=== PATIENT | female | born 1940 | race Caucasian/White ===

== ENCOUNTER 2017-10-22 20:51 | Inpatient (IN) | payer MEDICARE ==
[2017-10-22 21:22] LABS: ADD MAN DIFF? NO
[2017-10-22 21:28] LABS: BILIRUBIN,URINE NEGATIVE (NEG); CLARITY,URINE CLOUDY; COLOR,URINE YELLOW; GLUCOSE,URINE NEGATIVE (NEG); NITRITE,URINE NEGATIVE (NEG); PROTEIN,URINE NEGATIVE (NEG-TRACE); UROBILINOGEN,URINE 0.2 mg/dL (0.2 mg/dL)
[2017-10-22 21:29] LABS: BASO # 0.1 x10^3/uL (0.0-0.2); BASO % 1 % (0-3); EOS % 0 % (0-3); HEMOGLOBIN 15.6 g/dL (12.0-15.5); LYMPH % 15 % (24-48); MEAN CORPUSCULAR HEMOGLOBIN 32 pg (25-35); MEAN CORPUSCULAR HGB CONC 34 g/dL (31-37); MEAN CORPUSCULAR VOLUME 93 fL (79-100); MONO % 8 % (0-9); NEUT % 76 % (31-73); PLATELET COUNT 243 x10^3/uL (140-400); RED BLOOD COUNT 4.97 x10^6/uL (3.50-5.40); RED CELL DISTRIBUTION WIDTH 13.8 % (11.5-14.5); WHITE BLOOD COUNT 13.1 x10^3/uL (4.0-11.0)
[2017-10-22 21:33] LABS: BACTERIA,URINE MANY /HPF (0-FEW); RBC,URINE OCC /HPF (0-2); SQUAMOUS EPITHELIAL CELL,UR MANY /LPF
[2017-10-22 21:37] LABS: ANION GAP 14 (6-14); BLOOD UREA NITROGEN 41 mg/dL (7-20); BUN/CREATININE RATIO 29 (6-20); CALCIUM 9.2 mg/dL (8.5-10.1); CARBON DIOXIDE 21 mmol/L (21-32); CHLORIDE 97 mmol/L (98-107); CREATININE 1.4 mg/dL (0.6-1.0); GFR 36.6; GLUCOSE 148 mg/dL (70-99); SODIUM 132 mmol/L (136-145)
[2017-10-22] MEDS: IV NORMAL SALINE 1000ML BAG 1,000 ML IV (21:37)
[2017-10-22 21:42] LABS: ALBUMIN 3.7 g/dL (3.4-5.0); ALK PHOS 87 U/L (46-116); ALT (SGPT) 25 U/L (14-59); AST (SGOT) 38 U/L (15-37); TOTAL BILIRUBIN 0.5 mg/dL (0.2-1.0); TOTAL PROTEIN 7.3 g/dL (6.4-8.2)
[2017-10-22 21:45] LABS: TROPONINI 0.023 ng/mL (0.000-0.055)
[2017-10-22 21:50] LABS: CKMB MASS 3.3 ng/mL (0.0-3.6); CREATINE KINASE 164 U/L (26-192)
[2017-10-22] MEDS: ASPIRIN ENTERIC COATED 325 MG TABLET.DR. PO (22:58)
[2017-10-22] MEDS ORDERED: ONDANSETRON PF 4 MG/2 ML VIAL. IV (23:15)
[2017-10-23 03:34] LABS: TROPONINI 0.053 ng/mL (0.000-0.055)
[2017-10-23] MEDS ORDERED: ACETAMINOPHEN 325 MG TABLET. PO (05:30)
[2017-10-23 05:43] LABS: TROPONINI 0.055 ng/mL (0.000-0.055)
[2017-10-23] MEDS ORDERED: IV NORMAL SALINE 1000ML BAG 1,000 ML IV (06:00)
[2017-10-23 09:10] LABS: ANION GAP 9 (6-14); BLOOD UREA NITROGEN 34 mg/dL (7-20); CALCIUM 8.4 mg/dL (8.5-10.1); CARBON DIOXIDE 24 mmol/L (21-32); CHLORIDE 101 mmol/L (98-107); CHOLESTEROL 218 mg/dL (0-200); CREATININE 1.2 mg/dL (0.6-1.0); GFR 43.7; GLUCOSE 88 mg/dL (70-99); HDLC 82 mg/dL (40-60); LDLC 122 mg/dL (0-100); MAGNESIUM 1.8 mg/dL (1.8-2.4); NON-HDL CHOLESTEROL 136 mg/dL (0-129); POTASSIUM 4.3 mmol/L (3.5-5.1); SODIUM 134 mmol/L (136-145); TRIGLYCERIDES 70 mg/dL (0-150); VLDLC 14 mg/dL (0-40)
[2017-10-23 09:14] LABS: CHOLESTEROL/HDL RATIO 2.7
[2017-10-23] MEDS ORDERED: traMADol 50 MG TABLET PO (09:15)
[2017-10-23 09:22] LABS: THYROID STIM HORMONE (TSH) 3.868 uIU/mL (0.358-3.74)
[2017-10-23] MEDS: clonazePAM 0.5 MG TABLET PO (09:42)
[2017-10-23] MEDS: LEVOTHYROXINE 88 MCG TABLET PO (09:42)
[2017-10-23] MEDS: HYDROCORTISONE 10 MG TABLET PO (09:48)
[2017-10-23] MEDS ORDERED: CALCIUM CARB/VIT D3 500/200 TABLET. PO (10:00)
[2017-10-23] MEDS ORDERED: ASPIRIN ENTERIC COATED 81 MG TABLET.DR. PO (11:00)
[2017-10-23] MEDS ORDERED: HYDROCORTISONE 10 MG TABLET PO (17:00)
[2017-10-23] MEDS ORDERED: ATORVASTATIN CALCIUM 40 MG TABLET. PO (21:00)
[2017-10-23] MEDS ORDERED: tiZANidine 4 MG TABLET. PO (21:00)
== END 2017-10-23 14:19 | disposition home or self-care (01) | DRG 690 ==
LOC: ER 20:51 → 6 SOUTH 23:15
DX: N39.0 Urinary tract infection, site not specified (principal); E87.1 Hypo-osmolality and hyponatremia; E27.1 Primary adrenocortical insufficiency; D35.1 Benign neoplasm of parathyroid gland; E89.0 Postprocedural hypothyroidism; G89.29 Other chronic pain; R01.1 Cardiac murmur, unspecified; M81.0 Age-related osteoporosis without current pathological fracture; M19.90 Unspecified osteoarthritis, unspecified site; F41.9 Anxiety disorder, unspecified; N18.9 Chronic kidney disease, unspecified; M41.9 Scoliosis, unspecified; E86.0 Dehydration; Z98.42 Cataract extraction status, left eye; Z83.3 Family history of diabetes mellitus; Z98.41 Cataract extraction status, right eye; Z88.6 Allergy status to analgesic agent; Z88.1 Allergy status to other antibiotic agents; Z91.048 Other nonmedicinal substance allergy status
CPT/HCPCS: 36415; 70450; 71045; 72125; 80048; 80053; 80061; 81001; 82553; 83735; 84443; 84484; 85025; 87086; 93005; 93306; 96360; 99285; 99285-25; J1956; J7030